=== PATIENT | female | born 1970 | race Caucasian/White ===

== ENCOUNTER 2017-05-02 18:51 | Emergency (ER) | payer OTHER ==
[2017-05-02 19:23] LABS: #Basophils 0.1 thou/uL (0.0-0.2); #Eosinphils 0.2 thou/uL (0.0-0.7); #Monocytes 0.6 thou/uL (0.11-0.59); #Neutrophils 4.5 thou/uL (1.40-6.50); %Basophils 1.1 % (0.0-1.0); %Eosinophils 2.8 % (0.0-10.0); %Lymphocytes 27.3 % (21.0-51.0); %Monocytes 7.9 % (0.0-10.0); %Neutrophils 60.8 % (42.0-75.0); Hemoglobin 13.2 g/dL (12.0-16.0); Mean Corpuscular HGB CONC 33.5 g/dL (32.0-36.0); Mean Corpuscular Hemoglobin 30.3 pg (27.0-31.0); Mean Corpuscular Volume 90.4 fl (81.0-99.0); Mean Platelet Volume 6.1 fL (7.4-10.4); Platelet Count 247 thou/uL (130-400); RBC Distribution Width 12.6 % (11.5-14.5); Red Blood Cell (RBC) Count 4.36 mill/uL (4.20-5.40); White Blood Cell (WBC) Count 7.4 thou/uL (4.8-10.8)
[2017-05-02 19:40] LABS: ALT (SGPT) 55 U/L (8-55); AST (SGOT) 43 U/L (5-34); Albumin 3.9 g/dL (3.5-5.0); Alkaline Phosphatase 59 U/L (40-150); Anion Gap 14 mmol/L (10-20); BUN (Urea Nitrogen) 10 mg/dL (7.0-18.7); Bilirubin, Total 0.2 mg/dL (0.2-1.2); Calc. Creatinine Clearance 0 mL/min (70-130); Calcium 9.2 mg/dL (7.8-10.44); Carbon Dioxide 23 mmol/L (22-29); Chloride 106 mmol/L (98-107); Estimated GFR-MDRD 89; Globulin 3.3 g/dL (2.4-3.5); Glucose 127 mg/dL (70-105); Magnesium 1.9 mg/dL (1.6-2.6); Potassium 3.7 mmol/L (3.5-5.1); Protein, Total 7.2 g/dL (6.0-8.3); Sodium 139 mmol/L (136-145)
[2017-05-02 19:42] LABS: CKMB 0.7 ng/mL (0-6.6); Troponin I Less than 0.010 ng/mL (< 0.028)
== END 2017-05-02 20:00 | disposition home or self-care (01) ==
LOC: BURERS 18:51
DX: R00.2 Palpitations (principal)
CPT/HCPCS: 80053; 82553; 83735; 84443; 84484; 85025; 93005

== ENCOUNTER 2019-08-27 13:35 | Outpatient (CLI) | payer OTHER ==
--- NOTE | 2019-08-27 15:00 | ULT ---
THYROID ULTRASOUND: DATE: 08/27/2019. FINDINGS: Ultrasonography of the neck was performed for neck discomfort and to evaluate nodule seen on a screen ing exam in the community. The right lobe is large, measuring 4.6 x 1.8 x 1.2 cm. There are 3 separate nodular areas within the right lobe. One is located at the junction of middle to inferior 1/3 of the lobe and measures 1 cm long. There appears to be a calcification at its periphery, it is somewhat cystic, and this may actu ally be a colloid cyst. The second is located inferiorly and medially and is a solid nodule that alison sures 1 cm in size. It is more solid in nature and it is difficult to see its margins well. The thi rd nodule is located far laterally in the lobe, 4 mm in size and hypoechoic. It is well defined. The left lobe is more normal in size measuring 3.0 x 1.4 x 1.0 cm. No nodules or cysts were seen wit hin it. IMPRESSION: 1. Enlargement of the right lobe. 2. Multiple right lobe nodules including: a. A 1 cm cystic nodule middle to inferior, possibly a colloid cyst. b. A 1 cm solid nodule located inferiorly and medially c. One hypoechoic nodule measuring 4 mm laterally. The only nodule of immediate concern would be the solid 1 cm nodule. Because its margins are not wel l defined, it requires further followup. It would probably be best to refer the patient to an ENT do ctor for determination of biopsy versus ultrasound followup. POS: HOME
== END 2019-08-27 13:36 | disposition home or self-care (01) ==
LOC: BURULT 13:35
PROVIDERS: ATTEND Physician Assistant
DX: M54.2 Cervicalgia (principal); E04.9 Nontoxic goiter, unspecified; E04.2 Nontoxic multinodular goiter
CPT/HCPCS: 76536

== ENCOUNTER 2021-02-11 12:27 | Outpatient (CLI) | payer OTHER | END 2021-02-11 12:28 | disposition home or self-care (01) | LOC: BURRAD 12:27 | PROVIDERS: ATTEND Physician Assistant | DX: Z57.31 Occupational exposure to environmental tobacco smoke (principal) | CPT/HCPCS: 71046 ==